=== PATIENT | female | born 1950 | race Caucasian/White ===

== ENCOUNTER 2019-09-05 08:47 | Emergency (ER) | payer BC, MEDICARE ==
[2019-09-05] MEDS ORDERED: NORMAL SALINE 500 ML IV ONE (09:52)
[2019-09-05] MEDS ORDERED: IPRATROPIUM/ALBUTEROL 0.5-2.5 MG/3 ML AMPUL NEB ONE (09:53)
--- NOTE | 2019-09-05 09:53 | ER Document Report ---
ED General - General Chief Complaint: Breathing Difficulty Stated Complaint: TROUBLE BREATHING Time Seen by Provider: 09/05/19 09:30 Primary Care Provider: CHRISSIE FARRELL MD [ACTIVE STAFF] - Follow up as needed (Call today or tomorrow to schedule appoint with Dr. Farrell later this week for echocardiogram per our discussion) - HPI Notes: Patient presents with approximate 1 week of progressive shortness of breath worse with exertion no recent cough congestion fever or chest pain. She has a history of lupus is on Plaquenil only. No upper respiratory congestion. No history of blood clots in her lungs or legs no recent long travel - Related Data Allergies/Adverse Reactions: aspirin Allergy (Verified 09/05/19 09:33) Past Medical History - Social History Smoking Status: Never Smoker Family History: Reviewed & Not Pertinent Patient has suicidal ideation: No Patient has homicidal ideation: No Review of Systems - Review of Systems Constitutional: No symptoms reported EENT: No symptoms reported Cardiovascular: No symptoms reported Respiratory: See HPI Gastrointestinal: No symptoms reported Genitourinary: No symptoms reported Female Genitourinary: No symptoms reported Musculoskeletal: No symptoms reported Skin: No symptoms reported Hematologic/Lymphatic: No symptoms reported Neurological/Psychological: No symptoms reported Physical Exam - Vital signs Vitals: Temp Pulse Resp BP Pulse Ox 97.4 F 74 23 H 158/83 H 100 09/05/19 08:55 09/05/19 08:55 09/05/19 08:55 09/05/19 08:55 09/05/19 08:55 - General General appearance: Appears well, Alert - HEENT Head: Normocephalic Eyes: Normal Conjunctiva: Normal Extraocular movements intact: Yes Pupils: PERRL - Respiratory Respiratory status: No respiratory distress, Tachypnea Chest status: Nontender Breath sounds: Normal Chest palpation: Normal - Cardiovascular Rhythm: Tachycardia Heart sounds: Normal auscultation Murmur: No - Abdominal Inspection: Normal Distension: No distension - Neurological Neuro grossly intact: Yes Cognition: Normal Orientation: AAOx4 - Psychological Associated symptoms: Normal affect Course - Re-evaluation Re-evalutation: 09/05/19 14:52 Discussed inpatient admittance for echocardiogram. Patient declines she states that she has to take care of her animals. A second troponin and proBNP were run as a result of her not wanting to stay. Second troponin decreased proBNP of 1000. Discussed case with Dr. Farrell who stated to have patient call his office for follow-up echocardiogram to ensure no significant heart strain this week. Patient is not tachycardic she is saturating at 100% on room air in no distress. Will place on Xarelto with follow-up with Dr. Farrell as discussed. Return precautions provided . 09/05/19 15:01 - Vital Signs Vital signs: Temp Pulse Resp BP Pulse Ox 97.6 F 74 18 180/62 H 100 09/05/19 15:29 09/05/19 15:29 09/05/19 15:29 09/05/19 15:29 09/05/19 15:29 - Laboratory Result Diagrams: 09/05/19 09:31 09/05/19 09:31 Laboratory results interpreted by me: 09/05/19 09/05/19 09/05/19 09:31 09:31 13:20 Hgb 11.9 L Hct 34.2 L ESR 39 H Est GFR ( Amer) 55 L Est GFR (MDRD) Non-Af 46 L NT-Pro-B Natriuret Pep 1000 H - Diagnostic Test Radiology reviewed: Reports reviewed - EKG Interpretation by Me Additional EKG results interpreted by me: 09/05/19 14:55 Time 1021 Rate of 72, normal sinus rhythm, normal axis and intervals, no concerning ST depressions or elevations. Diffuse T wave inversions and S wave in V1. No old EKG to compare 09/05/19 15:01 Discharge - Discharge Clinical Impression: Pulmonary embolism Qualifiers: Pulmonary embolism type: unspecified Chronicity: unspecified Acute cor pulmonale presence: unspecified Qualified Code(s): I26.99 - Other pulmonary embolism without acute cor pulmonale Condition: Good Disposition: HOME, SELF-CARE Additional Instructions: You have been diagnosed with pulmonary embolism today. You have been started on Xarelto which is a blood thinner. If you ever hit your head or variance any rectal bleeding or blood in your urine please seek medical reevaluation. If you repeat your head you will need CT scan to ensure there is no acute bleeding in your brain. Our discussion, please return the emergency department for any worsening of condition despite being on blood thinners. Please call Dr. Tavarez's office who is a candle molder machine this week for an echocardiogram to ensure no significant heart strain. Prescriptions: Apixaban [Eliquis 5 mg Tablet] 5 mg PO BID #14 tablet Referrals: CHRISSIE FARRELL MD [ACTIVE STAFF] - Follow up as needed (Call today or tomorrow to schedule appoint with Dr. Farrell later this week for echocardiogram per our discussion)
[2019-09-05 10:02] LABS: ABSOLUTE EOSINOPHILS # (AUTO) 0.1 10^3/uL (0.0-0.6); ABSOLUTE LYMPHOCYTES (AUTO) 1.1 10^3/uL (0.5-4.7); ABSOLUTE MONOCYTES (AUTO) 0.7 10^3/uL (0.1-1.4); ABSOLUTE NEUT (AUTO) 6.3 10^3/uL (1.7-8.2); BASOPHILS % (AUTO) 0.4 % (0-2); EOSINOPHILS % (AUTO) 1.1 % (0-6); HEMATOCRIT 34.2 % (36.0-47.0); HEMOGLOBIN 11.9 g/dL (12.0-15.5); LYMPHOCYTES % (AUTO) 13.4 % (13-45); MEAN CORPUSCULAR HEMOGLOBIN 30.7 pg (27.0-33.4); MEAN CORPUSCULAR HGB CONC 34.7 g/dL (32.0-36.0); MEAN CORPUSCULAR VOLUME 88 fl (80-97); MONOCYTES % (AUTO) 8.1 % (3-13); PLATELET COUNT 273 10^3/uL (150-450); RED BLOOD COUNT 3.88 10^6/uL (3.72-5.28); RED CELL DISTRIBUTION WIDTH 12.6 % (11.5-14.0); TOTAL CELLS COUNTED % (AUTO) 100 %; WHITE BLOOD COUNT 8.1 10^3/uL (4.0-10.5)
[2019-09-05 10:12] LABS: ALBUMIN 3.6 g/dL (3.5-5.0); ALKALINE PHOSPHATASE 90 U/L (38-126); ANION GAP 12 (5-19); ASPARTATE AMINO TRANSFERASE 36 U/L (14-36); BILIRUBIN,DIRECT 0.2 mg/dL (0.0-0.4); BILIRUBIN,TOTAL 0.5 mg/dL (0.2-1.3); BLOOD UREA NITROGEN 19 mg/dL (7-20); CALCIUM 9.2 mg/dL (8.4-10.2); CARBON DIOXIDE 22 mmol/L (22-30); CHLORIDE 107 mmol/L (98-107); GLUCOSE 82 mg/dL (75-110); TOTAL PROTEIN 6.6 g/dL (6.3-8.2)
[2019-09-05 10:43] LABS: ERYTHROCYTE SEDIMENTATION RATE 39 mm/hr (0-30)
--- NOTE | 2019-09-05 11:19 | RADIOLOGY REPORT (SQ) ---
EXAM DESCRIPTION: CTA CHEST COMPLETED DATE/TIME: 09/05/2019 10:55 am REASON FOR STUDY: sob, r/o PE, PNA COMPARISON: None. TECHNIQUE: CT scan of the chest performed using helical scanning technique with dynamic intravenous contrast injection. Images reviewed with lung, soft tissue and bone windows. Reconstructed coronal and sagittal MPR images reviewed. Additional 3 dimensional post-processing performed to develop Maximal Intensity Projection images ([place] P). All images stored on PACS. All CT scanners at this facility use dose modulation, iterative reconstruction, and/or weight based d osing when appropriate to reduce radiation dose to as low as reasonably achievable (ALARA). [facility]: Dose Right [facility]: CareDose [facility]: Dose Right [facility]: Teradose 4D [facility]: [place] CONTRAST TYPE AND DOSE: contrast/concentration: Isovue 350.00 mg/ml; Total Contrast Delivered: 60.0 ml; Total Saline Delivered: 70.0 ml Contrast bolus adequate for pulmonary arteries and aorta. RENAL FUNCTION: BUN 19 creatinine 1.18. RADIATION DOSE: CT Rad equipment meets quality standard of care and radiation dose reduction techniq ues were employed. CTDIvol: 6.6 - 24.9 mGy. DLP: 792 mGy-cm. . LIMITATIONS: Motion artifact. FINDINGS: LUNGS AND PLEURA: Scattered linear markings in the lower lobes. Faint hazy ground-glass o pacity throughout both lungs. Trace pleural effusions. AORTA AND GREAT VESSELS: No aneurysm. No dissection. HEART: No pericardial effusion. No significant coronary artery calcifications. PULMONARY ARTERIES: Probable filling defects in the arterial branches to the right middle lobe (axial series 3, image 43 and 44). HILAR AND MEDIASTINAL STRUCTURES: No identified masses or abnormal nodes. HARDWARE: None in the chest. UPPER ABDOMEN: No significant findings. Limited exam. THYROID AND OTHER SOFT TISSUES: No masses. No adenopathy. BONES: No acute or significant finding. 3D MIPS: Confirm above findings. OTHER: No other significant finding. IMPRESSION: 1. STUDY SOMEWHAT LIMITED DUE TO MOTION ARTIFACT. THERE ARE PROBABLE PULMONARY EMBOLI IN BRANCHES TO THE RIGHT MIDDLE LOBE. 2. SCATTERED BASILAR ATELECTASIS. TRACE PLEURAL EFFUSIONS. FAINT HAZY GROUND-GLASS OPACITY THROUGHO UT BOTH LUNGS, NONSPECIFIC. MAY BE DUE TO EARLY PULMONARY EDEMA. COMMENT: Quality ID # [id number]: Final reports with documentation of one or more dose reduction techniques (e.g., Automated exposure control, adjustment of the mA and/or kV according to patient size, use of iterative reconstruction technique) TECHNICAL DOCUMENTATION: JOB ID: [id number] [employer]- All Rights Reserved Reading location - IP/workstation name: [email or web address]
[2019-09-05 12:24] LABS: INTERNATIONAL RATION (INR) 0.87; PROTHROMBIN TIME 11.8 SEC (11.4-15.4)
[2019-09-05 12:25] LABS: PARTIAL THROMBOPLASTIN TIME 29.4 SEC (23.5-35.8)
--- NOTE | 2019-09-05 13:21 | EKG REPORT ---
SEVERITY:- ABNORMAL ECG - SINUS RHYTHM JETT, CONSIDER BIATRIAL ABNORMALITIES CONSIDER RVH W/ SECONDARY REPOL ABNORMALITY NONSPECIFIC T ABNORMALITIES, LATERAL LEADS : Confirmed by: Yunior Joe MD 05-Sep-2019 13:20:45
[2019-09-05 14:50] LABS: NT PRO BNP 1000 pg/mL (<125); TROPONIN I < 0.012 ng/mL
[2019-09-05] MEDS ORDERED: RIVAROXABAN 15 MG TABLET PO ONE (15:13)
[2019-09-05 15:14] VITALS: BP 180/62
== END 2019-09-05 15:29 | disposition home or self-care (01) ==
LOC: ER 08:47
DX: I26.99 Other pulmonary embolism without acute cor pulmonale (principal); R06.02 Shortness of breath; R00.0 Tachycardia, unspecified; Z79.899 Other long term (current) drug therapy; Z88.8 Allergy status to other drugs, medicaments and biological substances
CPT/HCPCS: 93005; 94640; 99285; 96360; 36415; 83735; 85025; 85652; 85610; 85730; 80053; 84484; 83880; 71275; 93010; J7040; J7620

== ENCOUNTER → 2020-03-19 | Outpatient (CLI) | payer MEDICARE ==
--- NOTE | 2020-03-19 15:38 | RADIOLOGY REPORT (SQ) ---
EXAM DESCRIPTION: U/S RETROPERITON (RENAL/AORTA) IMAGES COMPLETED DATE/TIME: 03/19/2020 3:02 pm REASON FOR STUDY: CKD III (N18.3), RENAL INSUFFICIENCY (N28.9) N18.3 CHRONIC KIDNEY DISEASE, STAGE 3 (MODERATE) COMPARISON: None. TECHNIQUE: Dynamic and static grayscale images acquired of the kidneys and bladder and recorded on P ACS. Additional selected color Doppler and spectral images recorded. LIMITATIONS: None. FINDINGS: RIGHT KIDNEY: The right kidney measures 12.1 cm in length. Normal echogenicity. No so lid or suspicious masses. No hydronephrosis. No calcifications. LEFT KIDNEY: The left kidney measures 11.2 cm in length. Normal echogenicity. No solid or suspic ious masses. No hydronephrosis. No calcifications. BLADDER: No masses. OTHER FINDINGS: No other significant finding. IMPRESSION: NORMAL RENAL AND BLADDER ULTRASOUND. TECHNICAL DOCUMENTATION: JOB ID: [id number] [employer]- All Rights Reserved Reading location - IP/workstation name: [email or web address]
== END ==
LOC: RAD 13:57
PROVIDERS: ATTEND Internal Medicine Nephrology
DX: N18.3 Chronic kidney disease, stage 3 (moderate) (principal)
CPT/HCPCS: 76770